=== PATIENT | male | born 1965 | race Caucasian/White ===

== ENCOUNTER 2020-08-02 15:01 | Inpatient (IN) | payer MEDICARE, OTHER ==
[~2020-08-02] VITALS: Ht 175.3 cm; Wt 84.4 kg
--- NOTE | 2020-08-02 15:44 | NUR ---
covid 19 swab collected and sent to lab
[2020-08-02] MEDS ORDERED: LURA40TA PO (16:57)
[2020-08-02] MEDS ORDERED: RISP3TAB14 PO (16:57)
[2020-08-02] MEDS ORDERED: EMPA10TA PO (16:57)
[2020-08-02] MEDS ORDERED: METF-442 PO (16:57)
[2020-08-02] MEDS ORDERED: NICO-677 TD (16:57)
[2020-08-02] MEDS ORDERED: POLY17PO4 PO (16:57)
[2020-08-02] MEDS ORDERED: DOCU-141 PO (16:57)
[2020-08-02] MEDS ORDERED: GABA-532 PO (16:57)
--- NOTE | 2020-08-02 17:38 | NUR ---
covid result: negative
--- NOTE | 2020-08-02 17:39 | NUR ---
PT SENT TO UNIT ON [place] WITH EMT ON WHEELCHAIR. NAD NOTED. PT IS IN STABLE CONDITION
[2020-08-02 18:00] VITALS: BP 121/77
--- NOTE | 2020-08-02 18:20 | NUR ---
GPS ADMISSION NOTE: RECEIVED PATIENT FROM [facility] PATIENT ARRIVED ON THIS UNIT AT 1745 . PATIENT ADMITTED ON A 5150 HOLD FOR DTS, GD PER HOLD PATIENT WANDERING THE STREETS REPORTING SUICIDAL IDEATION,HE HAD JUST BEEN KICKED OUT OF HIS BOARD AND CARE FOR UNKNOWN REASONS PATIENT HAS NOT BEEN SLEEPING, IS HALLUCINATING, WHILE THREATENING PEOPLE WITH HIS CANE. THE 5150 WAS REVIEWED AND THE DOCUMENTATION IN THE 5150 HOLD APPEARS TO REFLECT THE PRESENTATION OF THE PATIENT. UPON FACE TO FACE ASSESSMENT PATIENT IS CURRENTLY LYING IN BED AWAKE, HAS NO S/S OR COMPLAINTS OF PAIN. PATIENT IS DISPLAYING NO S/S OF APPARENT DISTRESS. PATIENT BREATHING IS UNLABORED WITH EQUAL RISE AND FALL OF THE CHEST. PATIENT IS ALERT AND ORIENTATED X 3 ON ROOM AIR. PATIENT IS NOTED TO BEING DELUSIONAL, DISHEVELED, DISORGANIZED, COOPERATIVE, AND NEEDS REDIRECTION. PATIENT DENIES SUICIDE IDEATIONS AND HOMICIDAL IDEATIONS AT THIS TIME. PATIENT IS UNDER THE PSYCHIATRIC CARE OF DR. BELLO AND THE MEDICAL CARE OF DR GARCIA . PATIENT BELONGINGS WERE INVENTORIED AND CHECKED FOR CONTRABAND. ALL CONTRABAND REMOVED AND STORED IN PATIENT HALLWAY LOCKER. PATIENT ADVANCED DIRECTIVES PREFERENCE, IMMUNIZATIONS QUESTIONER COMPLETED. PATIENTS RIGHTS HANDBOOK, AND ALSO REFUSED TO SIGNS ALL PAPER WORK. PATIENT ORIENTATED TO ROOM, FLOOR, AND STAFF WITH ALL QUESTIONS ANSWERED. PATIENT EDUCATED ON THE USE OF THE CALL WETZEL. PATIENT BED SIDE RAILS ARE UP X 2 FOR SAFETY. PATIENT BED IS LOCKED, LOW AND I WILL CONTINUE TO MONITOR THIS PATIENT Q 15 MIN WITH THE HELP OF STAFF TO MAINTAIN SAFETY.
[2020-08-02] MEDS ORDERED: MAGNESIUM HYDROXIDE 30 ML UDC PO PRN (18:30)
[2020-08-02] MEDS ORDERED: ACETAMINOPHEN 325 MG TABLET PO PRN (18:30)
[2020-08-02] MEDS ORDERED: MAG HYDROX/AL HYDROX/SIMETH 30 ML UDC PO PRN (18:30)
[2020-08-02] MEDS ORDERED: BLOOD SUGAR DIAGNOSTIC 1 EACH STRIP IN ONE (18:30)
[2020-08-02] MEDS ORDERED: TEMAZEPAM 7.5 MG CAPSULE PO PRN (18:30)
[2020-08-02] MEDS ORDERED: LORAZEPAM 0.5 MG TABLET PO PRN (18:30)
[2020-08-02 19:42] VITALS: BP 121/77
--- NOTE | 2020-08-02 20:15 | NUR ---
GPS RN NOTE: PT ACCU CHEK WAS DONE BY AM ADMITTING NURSE. BS WAS 282MG/DL. WILL INFORM MEDICAL DOCTOR FOR INSULIN ORDER AND CONTINUE TO MONITOR.
[2020-08-02] MEDS: HYDROCODONE/APAP 5/325MG TABLET PO PRN (22:10)
--- NOTE | 2020-08-02 22:11 | NUR ---
GPS RN NOTES: AT 2205 PT REPORTED BILATERAL LOWER FEET PAIN D/T DIABETIC FOOT ULCER. NORCO 5-325MG 1TAB GIVEN PO PRN ORDERED. WILL CONTINUE TO MONITOR.
--- NOTE | 2020-08-02 23:08 | NUR ---
GPS RN NOTES: PT REQUESTED FOR SLEEP MEDICATION D/T INSOMNIA. RESTORIL 7.5MG GIVEN PO PRN ORDERED FOR SLEEP. WILL CONTINUE TO MONITOR
[2020-08-03] MEDS ORDERED: DEXTROSE 50%-WATER 50 ML DISP.SYRIN IV PRN (01:00)
--- NOTE | 2020-08-03 03:09 | NUR ---
GPS RN NOTES: ORDER HAVE BEEN PUT IN FOR ACCU CHEK AND SLIDING SCALE MILD ACHS, STARTING 0730 PER GIOVANI VIEIRA. WILL ENDORSE TO AM SHIFT
--- NOTE | 2020-08-03 06:43 | NUR ---
GPS RN CLOSING NOTES: PT AWAKE, ALERT AND ORIENTED. SLEPT 6HRS THIS SHIFT. NO S/S OF DISTRESS. NO BEHAVIORAL ISSUES THIS SHIFT. RESPIRATION EVEN AND UNLABORED WITH EQUAL RISE AND FALL OF THE CHEST ON ROOM AIR. ALL PT CARE NEEDS MET ANTICIPATED. WILL CONTINUE TO MONITOR AND ENDORSE TO AM SHIFT.
[2020-08-03] MEDS: BLOOD SUGAR DIAGNOSTIC 1 EACH STRIP IN SCH ×4 (07:19→21:05)
[2020-08-03] MEDS: INSULIN REGULAR, HUMAN 100 UNIT/ML 3 ML VIAL SQ PRN ×4 (07:30→21:09)
[2020-08-03 07:46] LABS: ALBUMIN 3.3 g/dL (3.4-5.0); BILIRUBIN,TOTAL 0.2 mg/dL (0.2-1.0); CALCIUM, SERUM 8.8 mg/dL (8.5-10.1); CREATININE 0.7 mg/dL (0.6-1.3); TOTAL PROTEIN, SERUM 6.5 g/dL (6.4-8.2)
[2020-08-03] MEDS: METFORMIN 500 MG TABLET PO SCH ×2 (07:47→18:03)
[2020-08-03 08:00] VITALS: BP 146/61
[2020-08-03] MEDS: GABAPENTIN 100 MG CAPSULE PO SCH ×3 (08:28→16:56)
[2020-08-03] MEDS: NICOTINE PATCH (21MG) 21 MG PATCH.TD24 TD SCH (08:29)
[2020-08-03] MEDS: POLYETHYLENE GLYCOL 3350 17 GM POWD.PACK PO SCH (08:29)
[2020-08-03] MEDS: DOCUSATE SODIUM 100 MG CAPSULE PO SCH (08:29)
[2020-08-03] MEDS ORDERED: risperiDONE 1 MG TABLET PO SCH (09:00)
--- NOTE | 2020-08-03 09:00 | NUR ---
RN NOTE- PT OOB AND VISIBLE ON UNIT AMBULATORY, MED COMPLIANT PO INTAKE GOOD REQUESTING EXTRA FOOD DR GARCIA AT BEDSIDE AND SAW FOOT ULCERS. PODIATRY CONSULT NEEDED PER MD PT DENIES SI [facility]
--- NOTE | 2020-08-03 09:05 | NUR ---
RN NOTE- DR GARCIA ON UNIT. THIS RN REMOVED DRESSINGS ON FEET AND SHOWED DR GARCIA. ORDERED PODIATRY CONSULT. ORDERED AND PHONED DR MUÑOZ. ULCER TO RT BALL OF FOOT AT 4TH METATARSAL AND ONE TO LEFT HALLUX. CLEANSED W NS, DRY STERILE GAUZE APPLIED
--- NOTE | 2020-08-03 09:56 | NUR ---
WOUND CARE CONSULT: PT PRESENTS WITH BILATERAL FOOT DRESSINGS WHICH ARE DRY AND INTACT. PER PT AND RN, DRESSINGS WERE JUST APPLIED. PODIATRY CONSULT HAD BEEN MADE PREVIOUSLY BY MD AND RN. WILL SEE PRN. DEFER TO DPM FOR WOUND TREATMENT PLAN. CURRENT SOHA SCORE IS 22. Addendum: 08/03/20 at 1039 by SEYMOUR GARIBAY WNDNU DPM CONSULT CALLED BY INVESTIGATION DIVISION CAPTAIN. DR BOLDEN CALLED FOR DPM CONSULT.
--- NOTE | 2020-08-03 14:16 | NUR ---
RN NOTE- PHARMACY ASKED ABOUT LATUDA 40 MG AND JARDIANCE 10 MG. CALLED PT MOTHER SOCO AT [phone]. SHE STATED SHE DOESN'T HAVE THOSE RX AT THE HOUSE. DR BELLO NOTIFIED REGARDING LATUDA, SHE STATED SHE WILL HAVE HIM ON RISPERDAL AND NEURONTIN. DR GARCIA PLACED PT ON METFORMIN 1000MG BID . JARDIANCE NOT IN USE.
--- NOTE | 2020-08-03 14:39 | NUR ---
RN NOTE- DR GARCIA NOTIFIED OF JARDIANCE NOT AVAILABLE . STATED PT NEEDS TO BE ON IT OR PHARMACY NEEDS TO RECOMMEND SUBSTITUTE. CALLED PHARMACY. NO SUBSTITUTE IN THAT CLASS. CALLED MOTHER SOCO AGAIN ASKING HER TO RECHECK RX AT HOME. STATED SHE WILL JEANETTE.
--- NOTE | 2020-08-03 15:41 | NUR ---
Family Contact: SW called the pts mother, Audrey ([phone]), and was unable to leave a message on her voicemail and SW feels that the number may be wrong based on the voicemail greeting.
--- NOTE | 2020-08-03 15:41 | NUR ---
Initial Discharge Plan: Pt came from a [facility] and Care located at [address] [place] [address]; ([phone]). Per pt, he would like to be placed in an alternate facility. SW will work with the pt and the MD for appropriate discharge planning. SW will form a safe and proper discharge plan.
--- NOTE | 2020-08-03 15:54 | NUR ---
Family Contact: SW called the pts mother, Audrey ([phone]), and discussed placement. Pts mother provided the SW a long history on the pt and then the SW stated that the pt could benefit from a locked facility. Pt has a wound and SW stated that the facility can provide wound care. SW stated that she will send out referrals and keep her updated.
[2020-08-03 16:00] VITALS: BP 152/77
[2020-08-03] MEDS: BENZTROPINE MESYLATE (1 MG) 1 MG TABLET PO SCH (16:56)
[2020-08-03 20:08] VITALS: BP 132/85
[2020-08-03] MEDS: risperiDONE 1 MG TABLET PO SCH (21:06)
[2020-08-04] MEDS: BLOOD SUGAR DIAGNOSTIC 1 EACH STRIP IN SCH ×4 (07:42→21:08)
[2020-08-04 08:00] VITALS: BP 114/68
[2020-08-04] MEDS: METFORMIN 500 MG TABLET PO SCH ×2 (08:34→17:09)
[2020-08-04] MEDS: BENZTROPINE MESYLATE (1 MG) 1 MG TABLET PO SCH ×2 (08:45→17:08)
[2020-08-04] MEDS: risperiDONE 1 MG TABLET PO SCH ×2 (08:46→21:15)
[2020-08-04] MEDS: GABAPENTIN 100 MG CAPSULE PO SCH ×3 (08:46→17:08)
[2020-08-04] MEDS: INSULIN REGULAR, HUMAN 100 UNIT/ML 3 ML VIAL SQ PRN ×4 (08:48→21:18)
[2020-08-04] MEDS: DOCUSATE SODIUM 100 MG CAPSULE PO SCH (08:49)
[2020-08-04] MEDS: NICOTINE PATCH (21MG) 21 MG PATCH.TD24 TD SCH (08:50)
[2020-08-04] MEDS: POLYETHYLENE GLYCOL 3350 17 GM POWD.PACK PO SCH (08:50)
--- NOTE | 2020-08-04 09:53 | NUR ---
GPS/RN-NOTES DR. POP MADE AWARE REGARDING PT. HOME MEDICATION OF JARDIANCE WAS NON FORMULARY PER PHARMACY.
[2020-08-04] MEDS: HYDROGEL DRESSING 90 GM TUBE TP SCH (11:01)
--- NOTE | 2020-08-04 11:30 | NUR ---
GPS/RN-NOTES DID WOUND TREATMENT ON BOTH FEET ORDERED.
--- NOTE | 2020-08-04 14:40 | NUR ---
GPS/RN-NOTES RECEIVED REPORT FROM LAB THAT PATIENT IS POSITIVE FOR MRSA NARES. DR. POP MADE AWARE WITH T.O ORDER OF BACTROBAN OINT BID X 5DAYS. NOTED AND CARRIED OUT.
[2020-08-04 16:00] VITALS: BP 121/64
[2020-08-04] MEDS: MUPIROCIN OINT 2% 22 GM TUBE NS SCH (17:13)
[2020-08-04 20:27] VITALS: BP 134/66
[2020-08-05] MEDS: BLOOD SUGAR DIAGNOSTIC 1 EACH STRIP IN SCH ×4 (07:21→21:05)
[2020-08-05] MEDS: INSULIN REGULAR, HUMAN 100 UNIT/ML 3 ML VIAL SQ PRN ×4 (07:23→21:19)
[2020-08-05 08:00] VITALS: BP 116/72
[2020-08-05] MEDS: GABAPENTIN 100 MG CAPSULE PO SCH ×3 (08:30→16:35)
[2020-08-05] MEDS: BENZTROPINE MESYLATE (1 MG) 1 MG TABLET PO SCH ×2 (08:30→16:35)
[2020-08-05] MEDS: MUPIROCIN OINT 2% 22 GM TUBE NS SCH ×2 (08:30→16:35)
[2020-08-05] MEDS: POLYETHYLENE GLYCOL 3350 17 GM POWD.PACK PO SCH (08:30)
[2020-08-05] MEDS: DOCUSATE SODIUM 100 MG CAPSULE PO SCH (08:30)
[2020-08-05] MEDS: METFORMIN 500 MG TABLET PO SCH ×2 (08:30→17:23)
[2020-08-05] MEDS: risperiDONE 1 MG TABLET PO SCH ×3 (08:30→22:00)
--- NOTE | 2020-08-05 08:30 | NUR ---
RN NOTE- DRESSING CHANGE TO BILATERAL FEET. AREA CLEANSED W NS, BETADINE APPLIED TO EDGES AND HYDRAGEL TO WOUND BEDS. DRY STERILE DRESSING APPLIED , KERLIX WRAPPED TAPED SECURELY. NO PURULENCE, NO DRAINAGE. NO ODOR. TOLERATED WELL
[2020-08-05] MEDS: NICOTINE PATCH (21MG) 21 MG PATCH.TD24 TD SCH (08:31)
[2020-08-05] MEDS: HYDROGEL DRESSING 90 GM TUBE TP SCH (08:33)
--- NOTE | 2020-08-05 09:00 | NUR ---
RN NOTE- PATIENT AMBULATING IN THE HALLWAY,GUARDED,CALM NO ACUTE DISTRESS. COMPLIANT WITH MEDICATIONS. AMBULATORY STEADY GAIT. WILL CONT. MONITORING FOR SAFETY AND BEHAVIOR.NOTED.
[2020-08-05] MEDS: SULFAMETH/TRIMETH 800/160 MG 1 UDTAB TABLET PO SCH ×2 (09:56→21:05)
[2020-08-05] MEDS: HYDROCODONE/APAP 5/325MG TABLET PO PRN ×2 (10:45→17:36)
--- NOTE | 2020-08-05 12:59 | NUR ---
SNF Referral: SELINA faxed a referral to [facility] with attention to Glenn to the fax number: [phone].
--- NOTE | 2020-08-05 14:00 | NUR ---
RN NOTE- PHARMACY CALLED REQUESTING DR GARCIA DC UNAVAILABLE RX JARDIANCE. TOLD THEM THAT I ALREADY PAGED AND INFORMED DR GARCIA OF THIS FACT TWO DAYS AGO.
--- NOTE | 2020-08-05 14:53 | NUR ---
SNF Contact: Lula ([phone]) from [facility] contacted the SW and stated that the pt was accepted to their facility.
[2020-08-05 16:00] VITALS: BP 138/74
--- NOTE | 2020-08-05 17:00 | NUR ---
RN NOTE- SPECIAL VELCRO SHOES DELIVERED FOR PT USE. PLACED ON PT,
[2020-08-05 20:13] VITALS: BP 122/62
[2020-08-05] MEDS: INSULIN GLARGINE, 100 UNIT/ML CARTRIDGE SQ SCH (21:20)
--- NOTE | 2020-08-05 22:41 | NUR ---
GPS RN NOTE: MEDICATION REFUSAL PT. REFUSED SCHEDULED 2200 MEDICATION RISPERDAL 3 MG PO. STATES " I WILL TAKE THEM TOMORROW NIGHT INSTEAD." WILL CONTINUE TO MONITOR FOR SAFETY AND BEHAVIOR.
[2020-08-06] MEDS: BLOOD SUGAR DIAGNOSTIC 1 EACH STRIP IN SCH ×4 (07:34→21:09)
[2020-08-06] MEDS: INSULIN REGULAR, HUMAN 100 UNIT/ML 3 ML VIAL SQ PRN ×4 (07:39→21:16)
[2020-08-06 08:00] VITALS: BP 128/72
[2020-08-06] MEDS: METFORMIN 500 MG TABLET PO SCH ×2 (08:17→17:12)
[2020-08-06] MEDS: GABAPENTIN 300 MG CAPSULE PO SCH ×3 (08:45→17:12)
[2020-08-06] MEDS: BENZTROPINE MESYLATE (1 MG) 1 MG TABLET PO SCH ×2 (08:45→17:12)
[2020-08-06] MEDS: DOCUSATE SODIUM 100 MG CAPSULE PO SCH (08:45)
[2020-08-06] MEDS: SULFAMETH/TRIMETH 800/160 MG 1 UDTAB TABLET PO SCH ×2 (08:45→21:07)
[2020-08-06] MEDS: POLYETHYLENE GLYCOL 3350 17 GM POWD.PACK PO SCH (08:45)
[2020-08-06] MEDS: NICOTINE PATCH (21MG) 21 MG PATCH.TD24 TD SCH (08:45)
[2020-08-06] MEDS: risperiDONE 1 MG TABLET PO SCH ×2 (08:46→21:08)
[2020-08-06] MEDS: HYDROCODONE/APAP 5/325MG TABLET PO PRN ×2 (08:52→20:11)
--- NOTE | 2020-08-06 08:52 | NUR ---
RN NOTE: PAIN PT C/O 06/13 BILAT LOWER LEG AND FOOT PAIN. REQUESTING PAIN MEDICATION. MEDICATED WITH NORCO PO PRN.
[2020-08-06] MEDS: HYDROGEL DRESSING 90 GM TUBE TP SCH (09:47)
[2020-08-06] MEDS: MUPIROCIN OINT 2% 22 GM TUBE NS SCH ×2 (09:47→17:38)
[2020-08-06 16:00] VITALS: BP 120/64
--- NOTE | 2020-08-06 20:13 | NUR ---
GPS RN NOTE: PAIN PT. C/O OF 6/10 BILATERAL FOOT PAIN. ADMINISTERED NORCO 5-325 PO PRN ORDERED. WILL CONTINUE TO MONITOR FOR SAFETY AND BEHAVIOR.
[2020-08-06 20:16] VITALS: BP 131/89
[2020-08-06] MEDS: INSULIN GLARGINE, 100 UNIT/ML CARTRIDGE SQ SCH (21:17)
[2020-08-07] MEDS: BLOOD SUGAR DIAGNOSTIC 1 EACH STRIP IN SCH ×4 (07:24→21:26)
[2020-08-07] MEDS: INSULIN REGULAR, HUMAN 100 UNIT/ML 3 ML VIAL SQ PRN ×4 (07:39→21:35)
[2020-08-07 08:00] VITALS: BP 135/72
[2020-08-07] MEDS: METFORMIN 500 MG TABLET PO SCH ×2 (08:05→17:26)
[2020-08-07] MEDS: GABAPENTIN 300 MG CAPSULE PO SCH ×3 (08:21→16:31)
[2020-08-07] MEDS: MUPIROCIN OINT 2% 22 GM TUBE NS SCH ×2 (08:21→17:26)
[2020-08-07] MEDS: BENZTROPINE MESYLATE (1 MG) 1 MG TABLET PO SCH ×2 (08:21→16:31)
[2020-08-07] MEDS: risperiDONE 1 MG TABLET PO SCH ×2 (08:22→21:24)
[2020-08-07] MEDS: DOCUSATE SODIUM 100 MG CAPSULE PO SCH (08:22)
[2020-08-07] MEDS: POLYETHYLENE GLYCOL 3350 17 GM POWD.PACK PO SCH (08:22)
[2020-08-07] MEDS: NICOTINE PATCH (21MG) 21 MG PATCH.TD24 TD SCH (08:22)
[2020-08-07] MEDS: SULFAMETH/TRIMETH 800/160 MG 1 UDTAB TABLET PO SCH ×2 (08:27→21:24)
[2020-08-07] MEDS: HYDROGEL DRESSING 90 GM TUBE TP SCH (09:19)
[2020-08-07] MEDS: HYDROCODONE/APAP 5/325MG TABLET PO PRN (09:27)
--- NOTE | 2020-08-07 09:27 | NUR ---
RN NOTE: PAIN PT C/O RIGHT FOOT PAIN, 06/13. REQUESTING NORCO. NORCO PO PRN ADMINISTERED.
[2020-08-07 16:00] VITALS: BP 118/67
[2020-08-07 20:49] VITALS: BP 111/68
[2020-08-07] MEDS: INSULIN GLARGINE, 100 UNIT/ML CARTRIDGE SQ SCH (21:34)
[2020-08-08] MEDS: BLOOD SUGAR DIAGNOSTIC 1 EACH STRIP IN SCH ×4 (07:46→21:19)
[2020-08-08] MEDS: INSULIN REGULAR, HUMAN 100 UNIT/ML 3 ML VIAL SQ PRN ×4 (07:57→21:21)
[2020-08-08 08:00] VITALS: BP 145/82
[2020-08-08] MEDS: BENZTROPINE MESYLATE (1 MG) 1 MG TABLET PO SCH ×2 (08:30→17:03)
[2020-08-08] MEDS: METFORMIN 500 MG TABLET PO SCH ×2 (08:30→17:03)
[2020-08-08] MEDS: SULFAMETH/TRIMETH 800/160 MG 1 UDTAB TABLET PO SCH ×2 (08:30→20:07)
[2020-08-08] MEDS: HYDROCODONE/APAP 5/325MG TABLET PO PRN ×2 (08:30→23:11)
[2020-08-08] MEDS: GABAPENTIN 300 MG CAPSULE PO SCH ×3 (08:30→17:04)
[2020-08-08] MEDS: POLYETHYLENE GLYCOL 3350 17 GM POWD.PACK PO SCH (08:31)
[2020-08-08] MEDS: DOCUSATE SODIUM 100 MG CAPSULE PO SCH (08:31)
[2020-08-08] MEDS: NICOTINE PATCH (21MG) 21 MG PATCH.TD24 TD SCH (08:31)
[2020-08-08] MEDS: risperiDONE 1 MG TABLET PO SCH ×2 (08:31→21:18)
--- NOTE | 2020-08-08 08:31 | NUR ---
RN NOTE: PAIN PT C/O 06/13 RIGHT AND LEFT FOOT AND LOWER EXTREMITY PAIN. REQUESTING NORCO. NORCO PO PRN ADMINISTERED.
[2020-08-08] MEDS: MUPIROCIN OINT 2% 22 GM TUBE NS SCH ×2 (08:53→17:04)
[2020-08-08] MEDS: HYDROGEL DRESSING 90 GM TUBE TP SCH (08:54)
[2020-08-08 16:00] VITALS: BP 117/71
[2020-08-08 19:53] VITALS: BP 125/65
[2020-08-08] MEDS: INSULIN GLARGINE, 100 UNIT/ML CARTRIDGE SQ SCH (21:23)
--- NOTE | 2020-08-08 23:13 | NUR ---
GPS RN NOTES: NECK PAIN PT C/O OF NECK PAIN 05/13. PT REQUESTED NORCO PRN ORDERED. VITALS CHECKED WNL. NO SOB. NO RESP DISTRESS. BREATHING EVEN AND UNLABORED. ADMINISTER NORCO. PT TOLERATED MEDICATION WELL. CONTINUE TO MONITOR.
[2020-08-09] MEDS: BLOOD SUGAR DIAGNOSTIC 1 EACH STRIP IN SCH ×4 (07:22→21:00)
[2020-08-09] MEDS: INSULIN REGULAR, HUMAN 100 UNIT/ML 3 ML VIAL SQ PRN ×4 (07:25→21:06)
[2020-08-09 08:00] VITALS: BP 123/70
[2020-08-09] MEDS: MUPIROCIN OINT 2% 22 GM TUBE NS SCH (08:16)
[2020-08-09] MEDS: HYDROGEL DRESSING 90 GM TUBE TP SCH (08:16)
[2020-08-09] MEDS: GABAPENTIN 300 MG CAPSULE PO SCH ×4 (08:17→21:01)
[2020-08-09] MEDS: risperiDONE 1 MG TABLET PO SCH ×3 (08:17→21:02)
[2020-08-09] MEDS: HYDROCODONE/APAP 5/325MG TABLET PO PRN (08:17)
[2020-08-09] MEDS: SULFAMETH/TRIMETH 800/160 MG 1 UDTAB TABLET PO SCH ×2 (08:17→20:04)
[2020-08-09] MEDS: DOCUSATE SODIUM 100 MG CAPSULE PO SCH (08:17)
[2020-08-09] MEDS: BENZTROPINE MESYLATE (1 MG) 1 MG TABLET PO SCH ×2 (08:18→17:04)
[2020-08-09] MEDS: NICOTINE PATCH (21MG) 21 MG PATCH.TD24 TD SCH (08:18)
[2020-08-09] MEDS: POLYETHYLENE GLYCOL 3350 17 GM POWD.PACK PO SCH (08:18)
[2020-08-09] MEDS: METFORMIN 500 MG TABLET PO SCH ×2 (08:18→17:04)
--- NOTE | 2020-08-09 08:18 | NUR ---
JOEY NOTE: PAIN PT C/O BILAT LOWER FOOT PAIN. 8/ ON PAIN SCALE. MEDICATED WITH TYLENOL 650MG PO PRN. Addendum: 08/09/20 at 1759 by CAMILO SHELBY RN ADDENDUM TO THE ABOVE NOTE: MEDICATED WITH NORCO PO PRN
[2020-08-09 16:00] VITALS: BP 115/64
[2020-08-09 19:44] VITALS: BP 113/55
[2020-08-09] MEDS: INSULIN GLARGINE, 100 UNIT/ML CARTRIDGE SQ SCH (21:05)
[2020-08-09] MEDS ORDERED: GABAPENTIN 100 MG CAPSULE PO SCH ×2 (22:00)
[2020-08-10 08:00] VITALS: BP 132/84
[2020-08-10] MEDS: BLOOD SUGAR DIAGNOSTIC 1 EACH STRIP IN SCH ×4 (08:06→21:59)
[2020-08-10] MEDS: BENZTROPINE MESYLATE (1 MG) 1 MG TABLET PO SCH ×2 (08:46→17:04)
[2020-08-10] MEDS: risperiDONE 1 MG TABLET PO SCH ×3 (08:46→21:59)
[2020-08-10] MEDS: METFORMIN 500 MG TABLET PO SCH ×2 (08:46→17:04)
[2020-08-10] MEDS: GABAPENTIN 300 MG CAPSULE PO SCH ×4 (08:47→21:59)
[2020-08-10] MEDS: DOCUSATE SODIUM 100 MG CAPSULE PO SCH (08:47)
[2020-08-10] MEDS: SULFAMETH/TRIMETH 800/160 MG 1 UDTAB TABLET PO SCH ×2 (08:47→20:39)
[2020-08-10] MEDS: INSULIN REGULAR, HUMAN 100 UNIT/ML 3 ML VIAL SQ PRN ×4 (08:50→21:28)
[2020-08-10] MEDS: NICOTINE PATCH (21MG) 21 MG PATCH.TD24 TD SCH (08:59)
[2020-08-10] MEDS: HYDROGEL DRESSING 90 GM TUBE TP SCH (08:59)
[2020-08-10] MEDS: POLYETHYLENE GLYCOL 3350 17 GM POWD.PACK PO SCH (08:59)
[2020-08-10] MEDS: HYDROCODONE/APAP 5/325MG TABLET PO PRN ×2 (09:03→19:59)
[2020-08-10 16:00] VITALS: BP 135/81
--- NOTE | 2020-08-10 20:00 | NUR ---
RN NOTE: PAIN PT C/O BILATERAL LOWER FOOT PAIN.7 /10 ON PAIN SCALE. MEDICATED, HYDROCODONE 5 / 325MG MG PO PRN , WILL CONTINUE TO MONITOR.
[2020-08-10 20:38] VITALS: BP 135/73
[2020-08-10] MEDS: INSULIN GLARGINE, 100 UNIT/ML CARTRIDGE SQ SCH (22:01)
--- NOTE | 2020-08-11 06:38 | NUR ---
GPS RN NOTES: PT. RESTING IN HIS ROOM, NO S/S OF DISTRESS NOTED . PT. CALM COOPERTIVE,NO CHANGE OF CONDITION NOTED ,AND NO BEHAVIOR PROBLEMS NOTED AT THIS TIME, ALL CARE NEEDS MET ANTICIPATED. WILL CONTINUE TO MONITOR FOR SAFETY BEHAVIOR, AND ENDORSE TO AM SHIFT FOR CONTINUITY OF CARE.
[2020-08-11] MEDS: INSULIN REGULAR, HUMAN 100 UNIT/ML 3 ML VIAL SQ PRN ×4 (07:42→21:48)
[2020-08-11] MEDS: BLOOD SUGAR DIAGNOSTIC 1 EACH STRIP IN SCH ×4 (07:46→21:45)
[2020-08-11 08:00] VITALS: BP 124/67
[2020-08-11] MEDS: risperiDONE 1 MG TABLET PO SCH ×3 (08:40→21:49)
[2020-08-11] MEDS: DOCUSATE SODIUM 100 MG CAPSULE PO SCH (08:40)
[2020-08-11] MEDS: GABAPENTIN 300 MG CAPSULE PO SCH ×4 (08:40→21:51)
[2020-08-11] MEDS: METFORMIN 500 MG TABLET PO SCH ×2 (08:41→17:08)
[2020-08-11] MEDS: BENZTROPINE MESYLATE (1 MG) 1 MG TABLET PO SCH ×2 (08:41→17:09)
[2020-08-11] MEDS: HYDROGEL DRESSING 90 GM TUBE TP SCH (08:41)
[2020-08-11] MEDS: POLYETHYLENE GLYCOL 3350 17 GM POWD.PACK PO SCH (08:44)
[2020-08-11] MEDS: NICOTINE PATCH (21MG) 21 MG PATCH.TD24 TD SCH (08:44)
[2020-08-11] MEDS: SULFAMETH/TRIMETH 800/160 MG 1 UDTAB TABLET PO SCH ×2 (08:45→21:12)
--- NOTE | 2020-08-11 09:54 | NUR ---
GPS RN OPENING NOTES RECEIVED PATIENT IN BED, AWAKE,ALERT AND ORIENTED X4. PATIENT IN NO APPARENT RESPIRATORY DISTRESS NOTED. PATIENT DENIES PAIN AT THIS TIME, WILL CONTINUE TO MONITOR Q15MIN FOR SAFETY AND BEHAVIOR
[2020-08-11] MEDS: HYDROCODONE/APAP 5/325MG TABLET PO PRN ×2 (10:03→19:38)
--- NOTE | 2020-08-11 10:03 | NUR ---
GPS/RN NOTES PATIENT COMPLAINED OF FOOT PAIN RATED 7/10. NORCO 5/325 MG PO WAS GIVEN. WILL CONTINUE TO MONITOR.
[2020-08-11 16:00] VITALS: BP 134/72
--- NOTE | 2020-08-11 18:13 | NUR ---
GPS RN CLOSING NOTES: PATIENT IS ON BED, PATIENT IN NO APPARENT RESPIRATORY OF DISTRESS NOTED. PATIENT DENIES PAIN AT THIS TIME. PATIENT IS CALM AND COOPERATIVE, NO CHANGE OF CONDITION NOTED AND NO BEHAVIOR PROBLEMS NOTED AT THIS TIME, ALL CARE NEEDS MET ANTICIPATED. ALL DUE MEDICATION WAS GIVEN. WILL CONTINUE ENDORSED TO WASTEWATER MANAGER FOR CONTINUITY OF CARE.
--- NOTE | 2020-08-11 19:39 | NUR ---
RN NOTE: PAIN PT C/O BILATERAL LOWER FOOT , TOE PAIN.7 /10 ON PAIN SCALE. MEDICATED, HYDROCODONE 5 / 325MG MG PO PRN , WILL CONTINUE TO MONITOR.
[2020-08-11 19:53] VITALS: BP 118/65
[2020-08-11] MEDS: INSULIN GLARGINE, 100 UNIT/ML CARTRIDGE SQ SCH (22:26)
[2020-08-12] MEDS: BLOOD SUGAR DIAGNOSTIC 1 EACH STRIP IN SCH ×4 (07:36→21:22)
[2020-08-12] MEDS: INSULIN REGULAR, HUMAN 100 UNIT/ML 3 ML VIAL SQ PRN ×4 (07:44→21:23)
[2020-08-12] MEDS: METFORMIN 500 MG TABLET PO SCH ×2 (07:51→17:17)
[2020-08-12 08:00] VITALS: BP 143/89
[2020-08-12] MEDS: risperiDONE 1 MG TABLET PO SCH ×4 (08:22→21:24)
[2020-08-12] MEDS: BENZTROPINE MESYLATE (1 MG) 1 MG TABLET PO SCH ×2 (08:22→16:27)
[2020-08-12] MEDS: DOCUSATE SODIUM 100 MG CAPSULE PO SCH (08:23)
[2020-08-12] MEDS: NICOTINE PATCH (21MG) 21 MG PATCH.TD24 TD SCH (08:23)
[2020-08-12] MEDS: POLYETHYLENE GLYCOL 3350 17 GM POWD.PACK PO SCH (08:23)
[2020-08-12] MEDS: HYDROGEL DRESSING 90 GM TUBE TP SCH (08:23)
[2020-08-12] MEDS: SULFAMETH/TRIMETH 800/160 MG 1 UDTAB TABLET PO SCH ×2 (08:23→20:39)
[2020-08-12] MEDS: GABAPENTIN 300 MG CAPSULE PO SCH ×4 (08:23→21:24)
[2020-08-12] MEDS: HYDROCODONE/APAP 5/325MG TABLET PO PRN ×2 (08:28→17:42)
--- NOTE | 2020-08-12 09:00 | NUR ---
RN NOTE- PT VISIBLE ON UNIT, QUIET THIS MORNING THOUGH INTERACTIVE ON APPROACH, MED COMPLIANT DENIES SI HI AH VH NO BEHAVIORAL ISSUES PO INTAKE GOOD WOUND CARE THIS AM
--- NOTE | 2020-08-12 11:11 | NUR ---
SW Family Contact: This telegraphic typewriter installer contacted pt's mother Audrey ([phone]) and left a voicemail in regards to pt's discharge plan.
--- NOTE | 2020-08-12 13:00 | NUR ---
RN NOTE- DRESSING CHANGE BILATERAL FEET. WOUND BEDS CLEAN, NO ERYTHEMA NO EXUDATE. CLEAN AND DRY. DRESSING APPLIED. TAPED SECURELY. TOLERATED WELL.
[2020-08-12 16:00] VITALS: BP 114/80
[2020-08-12 19:55] VITALS: BP 143/78
[2020-08-12] MEDS: INSULIN GLARGINE, 100 UNIT/ML CARTRIDGE SQ SCH (22:14)
[2020-08-13 08:00] VITALS: BP 124/73
[2020-08-13] MEDS: BLOOD SUGAR DIAGNOSTIC 1 EACH STRIP IN SCH ×4 (08:21→21:22)
[2020-08-13] MEDS: INSULIN REGULAR, HUMAN 100 UNIT/ML 3 ML VIAL SQ PRN ×4 (08:27→21:17)
[2020-08-13] MEDS: NICOTINE PATCH (21MG) 21 MG PATCH.TD24 TD SCH (09:00)
[2020-08-13] MEDS: POLYETHYLENE GLYCOL 3350 17 GM POWD.PACK PO SCH (09:00)
[2020-08-13] MEDS: METFORMIN 500 MG TABLET PO SCH ×2 (09:28→17:55)
[2020-08-13] MEDS: DOCUSATE SODIUM 100 MG CAPSULE PO SCH (09:28)
[2020-08-13] MEDS: SULFAMETH/TRIMETH 800/160 MG 1 UDTAB TABLET PO SCH ×2 (09:28→21:09)
[2020-08-13] MEDS: BENZTROPINE MESYLATE (1 MG) 1 MG TABLET PO SCH ×2 (09:28→17:54)
[2020-08-13] MEDS: GABAPENTIN 300 MG CAPSULE PO SCH ×4 (09:29→21:09)
[2020-08-13] MEDS: risperiDONE 1 MG TABLET PO SCH ×4 (09:29→21:09)
[2020-08-13] MEDS: HYDROCODONE/APAP 5/325MG TABLET PO PRN ×2 (09:42→18:29)
[2020-08-13] MEDS: HYDROGEL DRESSING 90 GM TUBE TP SCH (09:46)
[2020-08-13 16:00] VITALS: BP 131/85
--- NOTE | 2020-08-13 18:45 | NUR ---
medicated x2 for foot pain.
[2020-08-13 20:49] VITALS: BP 127/70
[2020-08-13] MEDS: INSULIN GLARGINE, 100 UNIT/ML CARTRIDGE SQ SCH (21:20)
[2020-08-14] MEDS: INSULIN REGULAR, HUMAN 100 UNIT/ML 3 ML VIAL SQ PRN ×4 (06:59→21:19)
[2020-08-14] MEDS: BLOOD SUGAR DIAGNOSTIC 1 EACH STRIP IN SCH ×4 (07:01→21:15)
--- NOTE | 2020-08-14 07:08 | NUR ---
GPS RN OPENING NOTES RECEIVED PT RESTING IN BED AT THIS TIME PT IS A/O X3-4, CALM, COOPERATIVE, GUARDED, ISOLATIVE, PT DENIES SI/HI, DENIES AVH, COMPLIANT WITH STAFF AND MEDICATION REGIMENT/TREATMENT AT THIS TIME. NO SOB NOTED, NO S/S OF ANY ACUTE DISTRESS NOTED. NO C/O PAIN AT THIS TIME. RESPIRATIONS ARE EVEN AND UNLABORED WITH EQUAL RISE AND FALL IN CHEST. SAFETY PRECAUTION IN PLACE AND MAINTAINED AT ALL TIMES. BED IN LOWEST LOCKED POSITION, HOB ELEVATED, SIDE RAILS UP X 2, CALL LIGHT WITHIN REACH. WILL CONTINUE TO MONITOR Q15MIN FOR SAFETY AND BEHAVIOR
[2020-08-14 08:00] VITALS: BP 117/65
[2020-08-14] MEDS: risperiDONE 1 MG TABLET PO SCH ×4 (08:56→21:12)
[2020-08-14] MEDS: NICOTINE PATCH (21MG) 21 MG PATCH.TD24 TD SCH (09:00)
[2020-08-14] MEDS: POLYETHYLENE GLYCOL 3350 17 GM POWD.PACK PO SCH (09:00)
--- NOTE | 2020-08-14 09:00 | NUR ---
WOUND TREATMENT ADMINISTERED AT THIS TIME. RIGHT PLANTAR, RIGHT HEEL AND LEFT GREAT TOE TO DIABETIC FOOT ULCER CLEANSE WITH NS, PAT DRY, BETADINE APPLIED ON BORDER, HYDROGEL APPLIED TO WOUND BASE, COVERED WITH GAUZE AND WRAPPED WITH KERLIX. PICTURES TAKEN AND FILED IN CHART. WILL CONTINUE WITH PLAN OF CARE
[2020-08-14] MEDS: BENZTROPINE MESYLATE (1 MG) 1 MG TABLET PO SCH ×2 (09:14→17:12)
[2020-08-14] MEDS: SULFAMETH/TRIMETH 800/160 MG 1 UDTAB TABLET PO SCH ×2 (09:16→21:12)
[2020-08-14] MEDS: GABAPENTIN 300 MG CAPSULE PO SCH ×4 (09:16→21:12)
[2020-08-14] MEDS: DOCUSATE SODIUM 100 MG CAPSULE PO SCH (09:16)
[2020-08-14] MEDS: HYDROGEL DRESSING 90 GM TUBE TP SCH (09:18)
[2020-08-14] MEDS: METFORMIN 500 MG TABLET PO SCH ×2 (10:22→17:12)
[2020-08-14 16:00] VITALS: BP 131/79
--- NOTE | 2020-08-14 16:15 | NUR ---
COVID SWAB COLLECTED FROM RIGHT NARE AND SENT TO LAB AT THIS TIME PER DR. BELLO'S ORDER. PT TOLERATED WELL. WILL CONTINUE WITH PLAN OF CARE
--- NOTE | 2020-08-14 18:37 | NUR ---
GPS RN CLOSING NOTES PT AWAKE IN BED AT THIS TIME. PT REMAINED STABLE THROUGHOUT SHIFT. ALL CARE, NEEDS, MEDICATIONS, AND WOUND TREATMENT ADMINISTERED ANTICIPATED PER ORDER. PT KEPT CLEAN AND DRY. FALL AND SAFETY PRECAUTION IN PLACE AND MAINTAINED AT ALL TIMES. BED IN LOWEST LOCKED POSITION, HOB ELEVATED, SIDE RAILS UP X 2, CALL LIGHT WITHIN REACH. WILL ENDORSE TO LITERACY CONSULTANT NURSE FOR KRISTAN
[2020-08-14] MEDS: HYDROCODONE/APAP 5/325MG TABLET PO PRN (19:37)
--- NOTE | 2020-08-14 20:00 | NUR ---
GPS RN NOTE: PAIN PT WAS COMPLAINING OF 9/10 FEET PAIN, REQUESTED NORCO. VSS, ADMIN PRN TASHIACO @ 193, WILL REASSESS AND CONTINUE TO MONITOR Q15MIN FOR SAFETY AND BEHAVIOR.
[2020-08-14 20:06] VITALS: BP 137/72
[2020-08-14] MEDS: INSULIN GLARGINE, 100 UNIT/ML CARTRIDGE SQ SCH (21:19)
[2020-08-15] MEDS: BLOOD SUGAR DIAGNOSTIC 1 EACH STRIP IN SCH ×4 (06:51→21:20)
[2020-08-15] MEDS: INSULIN REGULAR, HUMAN 100 UNIT/ML 3 ML VIAL SQ PRN ×3 (06:53→17:17)
--- NOTE | 2020-08-15 07:17 | NUR ---
GPS RN NOTE PT IS SCHEDULED TO BE D/C TODAY NEEDS RAPID COVID TEST, YESTERDAY AM SHIFT ORDERED AND COLLECTED RNA COVID TEST. NOTIFIED CHARGE NURSE REGARDING THE RAPID TEST THAT NEEDS TO BE OBTAINED FOR THE D/C. INFORMED LAB REGARDING THE ISSUE, LAB SAID THAT THE SPECIMEN WAS COLLECTED BY CARRIER AND WAS UNABLE TO CANCEL THE ORDER. NOTIFIED THE WHEEL ADJUSTER. ENDORSED TO DAY SHIFT, IF RAPID COVID NEEDS TO BE COLLECTED TO DO SO, THEY WILL NOTIFY THE DR AND SW REGARDING D/C PLANNING.
[2020-08-15] MEDS: METFORMIN 500 MG TABLET PO SCH ×2 (07:37→17:17)
[2020-08-15] MEDS: risperiDONE 1 MG TABLET PO SCH ×4 (07:37→21:19)
[2020-08-15 08:00] VITALS: BP 113/73
[2020-08-15] MEDS: SULFAMETH/TRIMETH 800/160 MG 1 UDTAB TABLET PO SCH ×2 (08:02→20:16)
[2020-08-15] MEDS: HYDROCODONE/APAP 5/325MG TABLET PO PRN ×2 (08:02→19:32)
[2020-08-15] MEDS: DOCUSATE SODIUM 100 MG CAPSULE PO SCH (08:02)
[2020-08-15] MEDS: BENZTROPINE MESYLATE (1 MG) 1 MG TABLET PO SCH ×2 (08:02→16:19)
[2020-08-15] MEDS: GABAPENTIN 300 MG CAPSULE PO SCH ×4 (08:03→21:18)
[2020-08-15] MEDS: NICOTINE PATCH (21MG) 21 MG PATCH.TD24 TD SCH (08:09)
[2020-08-15] MEDS: POLYETHYLENE GLYCOL 3350 17 GM POWD.PACK PO SCH (08:10)
--- NOTE | 2020-08-15 09:00 | NUR ---
RN NOTE- PT WITHDRAWN CALM ORIENTED TO PERSON PLACE TIME PURPOSE EDENYING ALL MED COMPLIANT NEEDS ATTENDED, WOUND CARE THIS MORNING , NORCO EFFECTIVELY DECREASING PAIN
[2020-08-15] MEDS: HYDROGEL DRESSING 90 GM TUBE TP SCH (09:30)
--- NOTE | 2020-08-15 14:30 | NUR ---
RN NOTE- LAB CALLED. PT COVID NEGATIVE
[2020-08-15 16:00] VITALS: BP 119/69
[2020-08-15 20:31] VITALS: BP 133/79
[2020-08-15] MEDS: INSULIN GLARGINE, 100 UNIT/ML CARTRIDGE SQ SCH (21:22)
[2020-08-16] MEDS: METFORMIN 500 MG TABLET PO SCH (07:25)
[2020-08-16] MEDS: risperiDONE 1 MG TABLET PO SCH ×2 (07:25→12:09)
[2020-08-16] MEDS: INSULIN REGULAR, HUMAN 100 UNIT/ML 3 ML VIAL SQ PRN ×2 (07:30→11:54)
[2020-08-16] MEDS: BLOOD SUGAR DIAGNOSTIC 1 EACH STRIP IN SCH ×2 (07:34→11:50)
[2020-08-16 08:00] VITALS: BP 107/63
[2020-08-16] MEDS: GABAPENTIN 300 MG CAPSULE PO SCH ×2 (08:23→12:09)
[2020-08-16] MEDS: DOCUSATE SODIUM 100 MG CAPSULE PO SCH (08:24)
[2020-08-16] MEDS: SULFAMETH/TRIMETH 800/160 MG 1 UDTAB TABLET PO SCH (08:24)
[2020-08-16] MEDS: BENZTROPINE MESYLATE (1 MG) 1 MG TABLET PO SCH (08:24)
[2020-08-16] MEDS: POLYETHYLENE GLYCOL 3350 17 GM POWD.PACK PO SCH (08:24)
[2020-08-16] MEDS: HYDROGEL DRESSING 90 GM TUBE TP SCH (08:25)
[2020-08-16] MEDS: NICOTINE PATCH (21MG) 21 MG PATCH.TD24 TD SCH (08:25)
--- NOTE | 2020-08-16 10:30 | NUR ---
RN NOTE- RN NOTE- DRESSING CHANGE BILATERAL FEET. RT PLANTAR ASPECT FOOT. AREA CLEANSED W NS, HYDRAGEL APPLIED TO WOUND BED, STERILE DRESSING APPLIED, WRAPPED W KERLIX. MINOR ERYTHEMA, MILD SERO-SANGINOUS EXUDATE. NO PURULENCE NO ODOR NO PAIN. LEFT HALLUX- CLEANSED W NS, DRY STERILE DRESSING APPLIED. WRAPPED AND TAPED SECURELY.
--- NOTE | 2020-08-16 10:37 | NUR ---
Family Contact: SW called the pts mother, Audrey ([phone]), and left a voicemail stating that the pt will be discharged to [facility] today around 12pm. SELINA stated that if she has any questions or concerns to give the SW a call back.
--- NOTE | 2020-08-16 10:43 | NUR ---
Discharge Note: Patient was discharged to prison facility to [facility] [address] [place] [address]; ([phone]) via Ambulance transportation at 12:30pm. Vp Of Customer Experience Strategy spoke with Lula, Hazardous Materials Analyst at [facility] ([phone]) who stated patient will be accepted at facility today. SW informed the pts ronaldGonzalo arteagaon ([phone]), about the pts discharge. Patient is alert and oriented x2-3, and is not able to plan for self-care at this time, but is willing to accept care provided for him at the facility. Pt appears to be in a euthymic mood and presents with a calm affect. Pt appears to be well groomed and appropriately dressed. Pt appears to be ambulatory with a steady gait. Patient denies any suicidal or homicidal ideations as well as auditory and visual hallucinations. Patient is aware and agreeable with discharge plans. Patient will continue to follow-up with her (psychiatrist) Dr. Peterson and (data assistant) Dr. Dockery at [facility]. Patient was provided referrals to the following substance abuse programs: [facility] ([phone]); [facility] [address] [place] [address] ([phone]); [address] [place] [address] ([phone]); [facility] ([phone]); [facility] ([phone]); [facility] ([phone]); [facility] ([phone]). Patient signed the homeless waiver form and the choice of vendor form and both copies were placed in the chart.
--- NOTE | 2020-08-16 10:58 | NUR ---
RN NOTE- PHONED PAKO VASQUEZ TO GIVE REPORT. WAS PLACED ON HOLD AND LEFT THERE W NO FOLLOW UP. PHONED BACK. PLACED ON HOLD THEN FINALLY LEFT MESSAGE.,. UNABLE TO GIVE REPORT
--- NOTE | 2020-08-16 11:19 | NUR ---
RN NOTE- REPORT GIVEN AT [facility] FOR PT DC
--- NOTE | 2020-08-16 12:45 | NUR ---
RN NOTE- DISCHARGE NOTE- PT DC AT THIS TIME VIA AMBULANCE TO [facility] ACCOMPAN[facility] BY AMBULANCE CREW. PT REFUSED FLU VACCINE AT THIS TIME. TOLD OF THE BENEFITS AND STILL REFUSED. PT REFUSED PHOTOGRAPHS OF DIABETIC WOUNDS TO FEET THOUGH NOC SHIFT TOOK PHOTOGRAPHS 08/14. PT VS STABLE AT THIS TIME, PT DENIES SI HI AH VH. HE'S AMBULATORY, MED COMPLIANT , INTERACTIVE AND CALM. VALUABLES RETURNED TO PT AND SIGNED FOR, ID [id number] REMOVED, DC PLANNING AND AFTERCARE REVIEWED AND PT VERBALIZED UNDERSTANDING. REPORT CALLED TO FACILITY. ESCORTED OFF UNIT BY STAFF AND DISCHARGED.
== END 2020-08-16 12:45 | DRG 876 ==
LOC: ER 15:05 → GPS 18:04
PROVIDERS: ADMIT Psychiatry & Neurology Psychosomatic Medicine; ATTEND Nurse Practitioner Acute Care
PROC: 0JBQ0ZZ Excision of Right Foot Subcutaneous Tissue and Fascia, Open Approach (ICD-10-PCS; principal; 2020-08-03)
PROC: 0JBR0ZZ Excision of Left Foot Subcutaneous Tissue and Fascia, Open Approach (ICD-10-PCS; 2020-08-03)
DX: F25.9 Schizoaffective disorder, unspecified (principal); E11.65 Type 2 diabetes mellitus with hyperglycemia; L97.419 Non-pressure chronic ulcer of right heel and midfoot with unspecified severity; F29 Unspecified psychosis not due to a substance or known physiological condition; E11.621 Type 2 diabetes mellitus with foot ulcer; F17.200 Nicotine dependence, unspecified, uncomplicated; Z73.6 Limitation of activities due to disability; M20.42 Other hammer toe(s) (acquired), left foot; M20.41 Other hammer toe(s) (acquired), right foot; L84 Corns and callosities; Z79.84 Long term (current) use of oral hypoglycemic drugs; E11.40 Type 2 diabetes mellitus with diabetic neuropathy, unspecified; Z71.6 Tobacco abuse counseling; R26.89 Other abnormalities of gait and mobility; L97.529 Non-pressure chronic ulcer of other part of left foot with unspecified severity; L03.032 Cellulitis of left toe
CPT/HCPCS: 36415; 80053-TC; 80061-TC; 82962-TC; 87070-TC; 87081-TC; 87186-TC; A6248; C9803-CS; J1815; U0003-CS